=== PATIENT | male | born 1960 | race Caucasian/White ===

== ENCOUNTER 2019-05-31 10:27 | Emergency (ER) | payer SELFPAY ==
[2019-05-31 10:37] VITALS: BP 133/94
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
--- OUTSIDE RECORDS SUMMARY | 2019-06-02 16:01 | XMS REPORT | Continuity of Care Document ---
:1960 External Reference #:[id number] Author Name Dustin Bundy M.D. Address [address] [place] [address] Care Team Providers Name Role Phone Delvis Rosa M.D. - Ophthalmology Care Team Information Parts Picker [phone] Kira Tucker MD - Family Medicine Care Team Information Parts Picker Problems Active Problems Provider Date Essential hypertension Julita Ceron O.D. Onset: 06/02/2015 Hypercholesterolemia Julita Ceron O.D. Onset: 06/02/2015 Nuclear senile cataract Julita Ceron O.D. Onset: 06/02/2015 Retinal detachment Julita Ceron O.D. Onset: 06/02/2015 Epiretinal membrane Devon Avery M.D. Onset: 08/08/2015 Presence of intraocular lens Devon Avery M.D. Onset: 08/11/2015 Combined form of senile cataract Julita Ceron O.D. Onset: 08/25/2015 Benign neoplasm of choroid Devon Avery M.D. Onset: 02/10/2016 Vitreous degeneration Erika Neri O.D. Onset: 07/12/2016 Partial recent retinal detachment with Dustin Bundy M.D. Onset: 2016 single defect Presbyopia Erika Neri O.D. Onset: 02/22/2017 Myopia Erika Neri O.D. Onset: 02/22/2017 Social History Type Date Description Comments Sex Unknown ETOH Use Denies alcohol use Tobacco Use Start: Unknown Patient has never smoked Recreational Drug Use Denies Drug Use Smoking Status Reviewed: 04/07/19 Patient has never smoked Allergies, Adverse Reactions, Alerts Description No Known Drug Allergies Medications Active Medications SIG Qnty Indications Ordering Provider Date Pravastatin Sodium Devon Avery M.D. 02/09/2016 40mg Tablets Losartan Potassium Unknown 25mg Tablets Immunizations Description No Information Available Vital Signs Description No Information Available Results Description No Information Available Procedures Description No Information Available Medical Devices Description No Information Available Encounters Description No Information Available Assessments Date Code Description Provider 04/07/2019 H26.492 Other secondary cataract, left eye Dustin Bundy M.D. 04/07/2019 Z96.1 Presence of intraocular lens Dustin Bundy M.D. 04/07/2019 H33.013 Retinal detachment with single break, Dustin Bundy M.D. bilateral 11/14/2018 Z76.0 Encounter for issue of repeat Julita Ceron O.D. prescription Plan of Treatment 04/07/2019 - Dustin Bundy M.D.H26.492 Other secondary cataract, left eyeComments:Smoking can increase the risk of developing or worsening any eye related disease, as well as affect your overall health. If you are a smoker, we strongly recommend that you quit.If you are not a smoker, we strongly recommend that you do not start. There is clouding in the sac that holds your artificial lens in your left eye. When your vision bothers you, we will do a laser treatment (YAG Capsulotomy) here in the office to improve your vision.Follow up:1 Year Follow Up DFE You can expect to have your eyes dilated at your next visit. If Dr. Bundy orders any additional testing, it may require extra time. We recommend that you bring sunglasses, as dilation drops often make you light sensitive until they wear off. We always recommend you bring someone to drive you home if you are uncomfortable driving with your eyes dilated. If you have any questions before your next visit, feel free to call our office at .Z96.1 Presence of intraocular lensComments:The artificial lens implants in both eyes appear to be stable at this time.H33.013 Retinal detachment with single break, bilateral Functional Status Description No Information Available Mental Status Description No Information Available Referrals Description No Information Available
--- OUTSIDE RECORDS SUMMARY | 2019-06-02 16:01 | XMS REPORT | Continuity of Care Document ---
:1960 External Reference #:[id number] Author Name Kira Tucker MD Address [address] [id number] Problems Active Problems Provider Date Adult health examination Onset: 10/16/2017 Serous retinal detachment Onset: 07/25/2016 Anxiety disorder Onset: 11/29/2015 Social History Type Date Description Comments Sex Unknown Allergies, Adverse Reactions, Alerts Description No Information Available Medications Active Medications SIG Qnty Indications Ordering Date Provider Zolpidem Tartrate 1 at bedtime 30tabs Kira Tucker, 04/24/2019 10mg oral asneeded MD Tablets for insomnia Hydrocortisone External; Apply 85.05units Unknown 11/20/2018 2.5% Cream Twice Cream Each Day Rectally Losartan Potassium Oral; Take 1 90tabs Unknown 07/30/2018 25mg Tablet By Mouth Tablets Daily Pravastatin Sodium Oral; Take 1 90tabs Unknown 01/04/2016 40mg Tablet By Mouth Tablets Daily Aspirin Ec 1 daily Oral 30tabs Unknown 05/25/2014 81mg Tablets Immunizations CPT Code Status Date Vaccine Lot # [id number] Given 04/13/2019 Flu < 65 years [id number] 81798 Given 05/27/2018 Influenza Virus Vaccine, Quadrivalent, Split Virus, Im Use 0.5ML 69537 Given 05/27/2018 Flu < 65 years 79535 Given 05/27/2018 Influenza Virus Vaccine, Quadrivalent, Split, Preservative Free 58181 Given 05/27/2018 Flumist 92172 Given 05/27/2018 Flu High Dose 27266 Given 05/27/2018 Influenza Virus Vaccine, Split, Preserv Free, Intradermal Use 58929 Given 02/03/2018 Shingrix - Shingles vaccine, Herpes Zoster 74683 Given 10/16/2017 Shingrix - Shingles vaccine, Herpes Zoster 30191 Given 04/09/2017 Influenza Virus Vaccine, Split, Preserv Free, Intradermal Use 03139 Given 04/09/2017 Flu High Dose 78640 Given 04/09/2017 Flumist 42145 Given 04/09/2017 Influenza Virus Vaccine, Quadrivalent, Split, Preservative Free 62068 Given 04/09/2017 Flu < 65 years 23414 Given 04/09/2017 Influenza Virus Vaccine, Quadrivalent, Split Virus, Im Use 0.5ML 11475 Given 03/02/2016 Influenza Virus Vaccine, Quadrivalent, Split, Im Use 0.25ML 05875 Given 03/02/2016 Influenza Virus Vaccine, Quadrivalent, Split, Im Use 0.25ML 59615 Given 03/02/2016 Influenza Virus Vaccine, Quadrivalent, Split, Im Use 0.25ML 73754 Given 03/02/2016 Flu < 65 years 95027 Given 03/02/2016 Influenza Virus Vaccine, Quadrivalent, Split, Preservative Free 44072 Given 03/02/2016 Flumist 75259 Given 03/02/2016 Flu High Dose 95498 Given 06/08/2015 Flu High Dose 70705 Given 06/08/2015 Flumist 29970 Given 06/08/2015 Influenza Virus Vaccine, Quadrivalent, Split, Preservative Free 14641 Given 06/08/2015 Flu < 65 years 85518 Given 06/08/2015 Influenza Virus Vaccine, Quadrivalent, Split Virus, Im Use 0.5ML 05404 Given 05/11/2014 Tdap - Boostrix/Adacel 14545 Given 05/11/2014 Influenza Virus Vaccine, Quadrivalent, Split Virus, Im Use 0.5ML 38568 Given 05/11/2014 Flu < 65 years 27601 Given 05/11/2014 Influenza Virus Vaccine, Quadrivalent, Split, Preservative Free 75268 Given 05/11/2014 Flumist 33087 Given 05/11/2014 Flu High Dose 35954 Given 04/14/2013 Influenza Virus Vaccine Split Virus Intramuscular Use 0.5ML 96457 Given 04/14/2013 Flu High Dose 09978 Given 04/14/2013 Flumist 33430 Given 04/14/2013 Influenza Virus Vaccine, Quadrivalent, Split, Preservative Free 43038 Given 04/14/2013 Flu < 65 years 07139 Given 04/14/2013 Influenza Virus Vaccine, Quadrivalent, Split, Im Use 0.25ML 64138 Given 04/14/2013 Influenza Virus Vaccine, Quadrivalent, Split, Im Use 0.25ML 72051 Given 04/14/2013 Influenza Virus Vaccine, Quadrivalent, Split, Im Use 0.25ML 76831 Given 04/14/2013 Influenza Virus Vaccine, Quadrivalent, Split, Im Use 0.25ML 63002 Given 05/02/2010 Influenza Virus Vaccine, Quadrivalent, Split, Im Use 0.25ML 13895 Given 05/02/2010 Influenza Virus Vaccine Split Virus Intramuscular Use 0.5ML Vital Signs Date Vital Result Comment 04/13/2019 10:23am BP Systolic 132 mmHg BP Diastolic 82 mmHg Height 70 inches 5'10" Weight 185.00 lb Heart Rate 96 /min Body Temperature 99.0 F O2 % BldC Oximetry 96 % BMI (Body Mass Index) 26.5 kg/m2 07/15/2018 7:46am BP Systolic 128 mmHg Height 70.00 inches 5'10.00" Weight 184.00 lb Heart Rate 64 /min Body Temperature 97.2 F O2 % BldC Oximetry 98 % BMI (Body Mass Index) 26.40 kg/m2 Results Test Acquired Date Facility Test Result H/L Range Note Laboratory test 04/13/2019 [facility] Glucose, 102 finding ( )- - Fingerstick CF Lipid Panel 04/13/2019 [facility] Cholesterol Total 201 ( )- - Mass/Vol Cholester/HDL Molecular Ratio 3.5 HDL Cholesterol QN Ser/PL [facility] 58 LDL Cholesterol Mass/Vol 122 Triglycerides QN Ser/PLS [facility] 106 Procedures Date Code Description Status 04/24/2019 19782 Brief Emotional/Behav Assessment W/ Scoring Doc Per Completed Standard Inst Medical Devices Description No Information Available Encounters Type Date Location Provider Dx Diagnosis Office Visit 04/24/2019 1:15p [facility] Kira Tucker MD G47.8 Other sleep disorders Z00.00 Encntr for general adult medical exam w/o abnormal findings Assessments Date Code Description Provider 04/24/2019 G47.8 Other sleep disorders Kira Tucker MD 04/24/2019 Z00.00 Encounter for general adult medical examination Kira Tucker MD without abnormal findings 04/13/2019 Z13.220 Encounter for screening for lipoid disorders Nurse 04/13/2019 Z68.26 Body mass index (BMI) 26.0-26.9, adult Erika Narayan MD Plan of Treatment 04/24/2019 - Kira Tucker MDG47.8 Other sleep [id number] Encounter for general adult medical examination without abnormal findingsAllNew Medication: Zolpidem Tartrate 10 mg - 1 at bedtime oral asneeded for insomnia Functional Status Description No Information Available Mental Status Description No Information Available Referrals Description No Information Available
== END 2019-05-31 11:03 | disposition home or self-care (01) ==
LOC: ED 10:27
DX: S01.81XA Laceration without foreign body of other part of head, initial encounter (principal); V47.5XXA Car driver injured in collision with fixed or stationary object in traffic accident, initial encounter; Y92.410 Unspecified street and highway as the place of occurrence of the external cause; I10 Essential (primary) hypertension; E78.5 Hyperlipidemia, unspecified; F41.9 Anxiety disorder, unspecified; Z79.899 Other long term (current) drug therapy
CPT/HCPCS: 99282

== ENCOUNTER 2022-09-18 07:57 | Inpatient (IN) ==
[2022-09-18] MEDS ORDERED: Heparin - STEMI 5,000 UNITS/ML 1 ml VIAL IV ONE ×2 (08:00→08:02)
[2022-09-18] MEDS ORDERED: Bivalirudin 250 MG VIAL ONE (08:15)
[2022-09-18 08:50] LABS: Activated Partial Thrombo Time 25.4 seconds (26.0-38.0); INR 0.97 (0.88-1.18)
[2022-09-18 08:52] LABS: ABS Eosinophils 0.4 10^3/ul (0-0.6); ABS Lymphocytes 1.9 10^3/ul (1.0-4.8); ABS Monocytes 0.8 10^3/ul (0-0.8); Eosinophil % 5.4 %; Hematocrit 44 % (42-52); Hemoglobin 15.3 g/dL (14.0-18.0); Lymphocyte % 26.6 %; Mean Corpuscular HGB Conc 35 g/dL (31-36); Mean Corpuscular Hemoglobin 34 pg (27-31); Mean Corpuscular Volume 96 fL (80-94); Mean Platelet Volume 10.6 fL (7.4-10.4); Platelet Count 141 10^3/uL (150-450); Red Blood Count 4.56 10^6 /uL (4.18-5.48); Red Cell Distribution Width 13 % (10-15); White Blood Count 7.1 10^3/uL (3.5-10.8)
[2022-09-18 08:58] LABS: Albumin 4.4 g/dL (3.2-5.2); Albumin/Globulin Ratio 1.9 (1-3); Calcium 9.5 mg/dL (8.6-10.3); Creatinine, Serum 1.14 mg/dL (0.67-1.17); Globulin 2.3 g/dL (2-4); Potassium 4.7 mmol/L (3.5-5.0); Total Bilirubin 0.6 mg/dL (0.2-1.0); Total Protein 6.7 g/dL (6.4-8.9); eGFR CKD-EPI 72.7 (>60)
[2022-09-18] MEDS ORDERED: fentaNYL 100 mcg/2 ml 50 MCG/ML VIAL ONE (09:10)
[2022-09-18] MEDS ORDERED: Midazolam 5 mg/5 ml VIAL 1 mg/ml 5 ml VIAL (5 mg) ONE (09:10)
[2022-09-18] MEDS ORDERED: Heparin 2 UNITS/ML 1000 mls 3,000 ML IV ONE (09:11)
[2022-09-18] MEDS ORDERED: VERAPAMIL 2.5 MG/ML 2 ML VIAL ** 5 mg/2 ml ONE (09:11)
[2022-09-18] MEDS ORDERED: Heparin 1,000 UNIT/ML 10 ml (10,000 UNITS) CATHLAB/DIALYSIS ONE (09:11)
[2022-09-18] MEDS ORDERED: Lidocaine 1% MPF 5 ML VIAL ONE (09:12)
[2022-09-18] MEDS ORDERED: nitroGLYCERIN DRIP 25,000 MCG/250 ML BTL ONE (09:12)
[2022-09-18] MEDS ORDERED: Iohexol 350 (CONTRAST) 100 ML PAK IV ONE (09:12)
[2022-09-18] MEDS ORDERED: NS 0.9% 1000 ml BAG 1,000 ML IV SCH (09:45)
[2022-09-19 05:53] LABS: ABS Basophils 0.1 10^3/ul (0-0.2); ABS Eosinophils 0.4 10^3/ul (0-0.6); ABS Lymphocytes 1.7 10^3/ul (1.0-4.8); Eosinophil % 3.9 %; Hematocrit 41 % (42-52); Hemoglobin 14.2 g/dL (14.0-18.0); Lymphocyte % 18.2 %; Mean Corpuscular HGB Conc 34 g/dL (31-36); Mean Corpuscular Hemoglobin 33 pg (27-31); Mean Corpuscular Volume 95 fL (80-94); Mean Platelet Volume 10.4 fL (7.4-10.4); Platelet Count 125 10^3/uL (150-450); Red Blood Count 4.34 10^6 /uL (4.18-5.48); Red Cell Distribution Width 13 % (10-15); White Blood Count 9.1 10^3/uL (3.5-10.8)
[2022-09-19 06:54] LABS: Calcium 9.2 mg/dL (8.6-10.3); Potassium 4.2 mmol/L (3.5-5.0); Total Bilirubin 0.8 mg/dL (0.2-1.0)
[2022-09-19 07:01] LABS: Creatinine, Serum 1.08 mg/dL (0.67-1.17); HDL Cholesterol 47.2 mg/dL; eGFR CKD-EPI 77.6 (>60)
[2022-09-19 10:43] VITALS: BP 108/63
== END 2022-09-19 12:15 | disposition home or self-care (01) | DRG 247 ==
LOC: ED 07:57 → CHICATH 08:09 → ICU 09:34
PROVIDERS: ATTEND Emergency Medicine